=== PATIENT | female | born 1980 | race Caucasian/White ===

== ENCOUNTER 2019-01-13 09:23 | Emergency (ER) | payer BC ==
[~2019-01-13] VITALS: Ht 167.6 cm; Wt 61.2 kg
[~2019-01-13 09:23] MED LIST: IBUPROFEN 600600 M1; IRON325; NORCO 5-325 TA1 EACH; NORCO 5-325 TA1 EACH PO; PRENATAL
[2019-01-13 10:37] LABS: BASOPHILS 0.7 % (0.0-2.0); EOSINOPHILS 1.8 % (0.0-3.0); HEMATOCRIT 39.4 % (37.0-47.0); HEMOGLOBIN 13.2 gm/dL (12.0-15.0); LYMPHOCYTES 37.9 % (24.0-44.0); MCH 30.3 pg (26.0-34.0); MCHC 33.6 g/dL (28.0-37.0); MCV 90.2 fL (80.0-100.0); MONOCYTES 9.7 % (1.0-8.0); PLATELET COUNT 205 thou/uL (150-400); POLYS 49.9 % (36.0-66.0); RBC 4.37 mil/uL (4.20-5.00); RDW 12.9 % (10.5-14.5); WBC 4.1 thou/uL (4.0-11.0)
[2019-01-13 10:44] LABS: ANION GAP 7 mmol/L (7-16); BUN 11 mg/dL (7-18); CALCIUM 9.5 mg/dL (8.5-10.1); CHLORIDE 103 mmol/L (98-107); CO2 28 mmol/L (21-32); CREATININE 0.6 mg/dL (0.6-1.0); GLUCOSE 107 mg/dL (74-106); POTASSIUM 4.3 mmol/L (3.5-5.1); SODIUM 138 mmol/L (136-145)
[2019-01-13 10:53] LABS: TROPONIN-I <0.06 ng/mL (<0.06)
[2019-01-13 11:08] VITALS: BP 103/64
--- NOTE | 2019-01-13 16:14 | EKG ---
[address] [address] ELECTROCARDIOGRAM REPORT Name: SAM MACHUCA Room #: [facility]P [facility]AMPUSJosé#: [id number] Admission: 01/13/19 Attend Phys: Discharge: 01/13/19 Date of : 80 Report #: [id number] THIS REPORT FOR: //name// [facility] ED Test Date: 2019-01-13 Test Time: 09:36:42 Pat Name: SAM MACHUCA Department: Room: Gender: F Digital Designer: carmen : 1980 Requested By: Ramón Catherine Order Number: [id number] MD: Anthony Rick Measurements Intervals [place] Rate: 91 P: 83 MD: 165 QRS: 51 QRSD: 80 T: 56 QT: 349 QTc: 430 Interpretive Statements Sinus rhythm Normal tracing No previous ECG available for comparison Electronically Signed On 01-13-2019 16:13:48 [employer] by Anthony Rick [email or web address] <ELECTRONICALLY SIGNED> By: Anthony Rick MD, [facility] 01/13/19 1613 0936 0936 Anthony Rick MD, FACC /EPI
== END 2019-01-13 11:10 | disposition home or self-care (01) ==
LOC: ER 09:23
PROVIDERS: Emergency Medicine
DX: G89.29 Other chronic pain (principal); R07.89 Other chest pain